=== PATIENT | male | born 1990 | race Caucasian/White ===

== ENCOUNTER 2017-12-21 14:00 | Inpatient (IN) | payer OTHER ==
[2017-12-21] MEDS ORDERED: NACL 0.9% 1000 ML 1,000 ML IV ONE ×3 (14:07→19:11)
[2017-12-21 16:04] LABS: Basophils % (Auto) 0.4 % (0.0-1.8); Eosinophils % (Auto) 0.2 % (0.0-4.3); Lymphocytes % (Auto) 18.2 % (13.4-35.0); Mean Corpuscular HGB Conc 34 % (32-34); Mean Corpuscular Hemoglobin 30 pg (28-32); Mean Corpuscular Volume 89 fl (84-94); Monocytes % (Auto) 9.1 % (0.0-7.3); Platelet Count 429 K/mm3 (140-440); Red Blood Count 6.75 M/mm3 (3.65-5.03); Red Cell Distribution Width 13.4 % (13.2-15.2)
[2017-12-21 16:17] LABS: Albumin 5.8 g/dL (3.9-5); Calcium 11.9 mg/dL (8.4-10.2)
[2017-12-21 16:26] LABS: Hemoglobin 20.2 gm/dl (11.8-15.2)
[2017-12-21] MEDS ORDERED: ZOFRAN IV ONE (19:08)
[2017-12-21] MEDS ORDERED: SUBLIMAZE IV ONE (19:08)
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
[2017-12-21] MEDS ORDERED: MORPHINE IV PRN (22:14)
[2017-12-21] MEDS ORDERED: TYLENOL PO PRN (22:14)
[2017-12-21] MEDS ORDERED: SODIUM CHLORIDE FLUSH SYRINGE 10 ML IV PRN (22:14)
[2017-12-21] MEDS ORDERED: ZOFRAN IV PRN (22:14)
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
[2017-12-22] MEDS: NACL 0.9% 1000 ML 1,000 ML IV SCH ×6 (00:45→18:26)
--- NOTE | 2017-12-22 01:04 | XRay Report ---
FINAL REPORT EXAM: XR Abdomen CLINICAL INDICATIONS: ng tube placement FINDINGS: Single supine view of the abdomen was acquired. There is a nasogastric tube which terminates in the gastric body. Relatively little bowel gas is present. There is a dilated loop of what appears to be small bowel in the left hemipelvis, measuring 3.2 cm. No free air is seen. IMPRESSION: THE NASOGASTRIC TUBE TERMINATES IN THE GASTRIC BODY
[2017-12-22] MEDS ORDERED: NACL 0.9% 1000 ML 2,000 ML IV ONE ×2 (08:05→12:00)
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
[2017-12-22] MEDS: SODIUM CHLORIDE FLUSH SYRINGE 10 ML IV SCH ×2 (10:00→21:53)
[2017-12-22] MEDS: LOVENOX SUB-Q SCH (10:18)
[2017-12-22 11:46] LABS: Basophils % (Auto) 0.4 % (0.0-1.8); Eosinophils # (Auto) 0.1 K/mm3 (0.0-0.4); Eosinophils % (Auto) 0.8 % (0.0-4.3); Hematocrit 41.4 % (35.5-45.6); Hemoglobin 13.9 gm/dl (11.8-15.2); Lymphocytes # (Auto) 1.5 K/mm3 (1.2-5.4); Lymphocytes % (Auto) 21.7 % (13.4-35.0); Mean Corpuscular HGB Conc 34 % (32-34); Mean Corpuscular Hemoglobin 30 pg (28-32); Mean Corpuscular Volume 89 fl (84-94); Monocytes # (Auto) 0.7 K/mm3 (0.0-0.8); Monocytes % (Auto) 9.5 % (0.0-7.3); Platelet Count 253 K/mm3 (140-440); Red Blood Count 4.64 M/mm3 (3.65-5.03)
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
[2017-12-22 12:08] LABS: BUN/Creatinine Ratio 15; Blood Urea Nitrogen 15 mg/dL (9-20); Calcium 7.8 mg/dL (8.4-10.2); Hemolysis Index 17
[2017-12-22 18:04] LABS: Hematocrit 41.2 % (35.5-45.6); Hemoglobin 13.9 gm/dl (11.8-15.2)
[2017-12-22 18:14] LABS: Blood Urea Nitrogen 10 mg/dL (9-20)
[2017-12-23] MEDS: NACL 0.9% 1000 ML 1,000 ML IV SCH ×2 (00:28→06:49)
[2017-12-23 08:57] VITALS: BP 112/76
[2017-12-23] MEDS: LOVENOX SUB-Q SCH (09:16)
[2017-12-23 09:47] LABS: Hematocrit 40.1 % (35.5-45.6); Hemoglobin 13.8 gm/dl (11.8-15.2); Mean Corpuscular HGB Conc 34 % (32-34); Mean Corpuscular Hemoglobin 30 pg (28-32); Mean Corpuscular Volume 88 fl (84-94); Platelet Count 253 K/mm3 (140-440); Red Blood Count 4.58 M/mm3 (3.65-5.03); Red Cell Distribution Width 13.1 % (13.2-15.2)
[2017-12-23 10:02] LABS: BUN/Creatinine Ratio 8; Blood Urea Nitrogen 5 mg/dL (9-20); Hemolysis Index 11
[2017-12-23] MEDS ORDERED: K-DUR PO ONE ×2 (10:30→12:28)
[2017-12-23] MEDS ORDERED: D5W/0.45% NACL/KCL 30 MEQ 30 MEQ/1,000 ML BAG IV SCH (11:00)
--- NOTE | 2017-12-23 12:29 | Discharge Summary ---
Providers - Providers Date of Admission: 12/21/17 22:14 Attending physician: CESARIO MACARIO MD 12/21/17 21:45 Consult to Physician [CONS] Stat Comment: COMPLETED - LAURA Consulting Provider: DAVID SLADE Physician Instructions: Reason For Exam: Partial bowel obstruction Primary care physician: ROBERTO CARLOS CRUZ MD Hospitalization Condition: Stable Hospital course: 27-year-old man with history of hepatitis C comes emergency room with complaints of nausea and vomiting 3 days. Also complaining of abdominal pain in the left lower quadrant which she described as a tightness, constant, intensity 7/10, no radiation, cannot identify exacerbating or relieving factors. Complains of feeling dizzy, no diarrhea Partial small bowel obstruction Acute renal failure secondary to prolonged nausea vomiting Hyperkalemia Hypotension polycethemia Hypercalcemia Hyponatremia Dehydration Disposition: DC-01 TO HOME OR SELFCARE Time spent for discharge: 35 mins Exam - Constitutional Vitals: Temp Pulse Resp BP Pulse Ox 97.9 F 78 18 112/76 96 12/23/17 08:02 12/23/17 08:02 12/23/17 08:02 12/23/17 08:02 12/23/17 08:16 Plan Activity: advance as tolerated, fall precautions Diet: advance as tolerated Special Instructions: smoking cessation Additional Instructions: follow with primary surgeon in 3-5 days Follow up with: ROBERTO CARLOS CRUZ MD [Primary Care Provider] - 3-5 Days
--- NOTE | 2017-12-23 13:11 | Progress Note ---
Assessment and Plan 27 yo M with 1. pSBO - resolved 2. severe dehydration secondary to n/v - resolved 3. JACY - resolved 4. hypotension likely secondary to fluid depletion - resolved 5. hypokalemia Plan: 1. adv to soft diet 2. dc IVF 3. replace K 4. DVT ppx 5. OOB/ambulate 6. ok to dc home from surgery standpoint, [place] [facility] [place] Thank you for this consultation, please call with questions or concerns. Subjective Date of service: 12/23/17 Narrative: Pt seen and examined. Feels much better today. Tolerated diet today, no n/v, abd pain. Ostomy is functional. Objective Vital Signs - 12hr 12/23/17 12/23/17 12/23/17 04:02 08:02 08:16 Temperature 97.8 F 97.9 F Pulse Rate 74 78 Respiratory 16 18 Rate Blood Pressure 100/47 112/76 O2 Sat by Pulse 98 98 96 Oximetry - General physical appearance Narrative Exam: Gen: AAox3. NAd CV: s1, S2+ resp: even and unlabored Abd: soft, NT, ND. ostomy with serous fluid in bag Ext: no c/c/e - Labs 12/23/17 09:21 12/23/17 09:21 Diabetes panel 12/22/17 12/23/17 Range/Units 17:54 09:21 Sodium 140 (137-145) mmol/L Potassium 3.4 L (3.6-5.0) mmol/L Chloride 104.1 (98-107) mmol/L Carbon Dioxide 27 (22-30) mmol/L BUN 10 5 L (9-20) mg/dL Creatinine 0.7 L 0.6 L (0.8-1.5) mg/dL Glucose 80 (75-100) mg/dL Calcium 8.0 L (8.4-10.2) mg/dL Calcium panel 12/23/17 Range/Units 09:21 Calcium 8.0 L (8.4-10.2) mg/dL Pituitary panel 12/22/17 12/23/17 Range/Units 17:54 09:21 Sodium 140 (137-145) mmol/L Potassium 3.4 L (3.6-5.0) mmol/L Chloride 104.1 (98-107) mmol/L Carbon Dioxide 27 (22-30) mmol/L BUN 10 5 L (9-20) mg/dL Creatinine 0.7 L 0.6 L (0.8-1.5) mg/dL Glucose 80 (75-100) mg/dL Calcium 8.0 L (8.4-10.2) mg/dL Adrenal panel 12/22/17 12/23/17 Range/Units 17:54 09:21 Sodium 140 (137-145) mmol/L Potassium 3.4 L (3.6-5.0) mmol/L Chloride 104.1 (98-107) mmol/L Carbon Dioxide 27 (22-30) mmol/L BUN 10 5 L (9-20) mg/dL Creatinine 0.7 L 0.6 L (0.8-1.5) mg/dL Glucose 80 (75-100) mg/dL Calcium 8.0 L (8.4-10.2) mg/dL
[2017-12-24] MEDS ORDERED: LOVENOX SUB-Q SCH (10:00)
== END 2017-12-23 14:00 | disposition home or self-care (01) | DRG 683 ==
LOC: ED 14:00 → 3B-SURG 22:14
PROVIDERS: ADMIT Internal Medicine; ATTEND Internal Medicine
PROC: 0D9670Z Drainage of Stomach with Drainage Device, Via Natural or Artificial Opening (ICD-10-PCS; principal; 2017-12-21)
DX: N17.9 Acute kidney failure, unspecified (principal); K56.600 Partial intestinal obstruction, unspecified as to cause; E87.1 Hypo-osmolality and hyponatremia; F17.210 Nicotine dependence, cigarettes, uncomplicated; F12.90 Cannabis use, unspecified, uncomplicated; E87.5 Hyperkalemia; I95.9 Hypotension, unspecified; E83.52 Hypercalcemia; D75.1 Secondary polycythemia; Z93.3 Colostomy status; Z82.49 Family history of ischemic heart disease and other diseases of the circulatory system
CPT/HCPCS: 36415; 74018; 74019; 74176; 80048; 80053; 82150; 82565; 83690; 84484; 84520; 85014; 85018; 85025; 85027; 86850; 86900; 86901; 93005; 93010; J1650; J2270; J2405; J3010; J7030